=== PATIENT | female | born 1975 | race Caucasian/White ===

== ENCOUNTER 2023-12-27 16:36 | Emergency (ER) | payer BC ==
[~2023-12-27] VITALS: Ht 162.6 cm; Wt 77.1 kg
[2023-12-27 16:41] VITALS: BP_SYST 150; PULSE 66; RESP 18; TEMP 98.3; O2SAT 98
[2023-12-27 18:50] VITALS: BP_SYST 150; PULSE 66; RESP 18; TEMP 98.3; O2SAT 98
== END 2023-12-27 18:49 | disposition home or self-care (01) ==
LOC: SED 16:36
DX: S93.401A Sprain of unspecified ligament of right ankle, initial encounter (principal); Z79.899 Other long term (current) drug therapy; W18.42XA Slipping, tripping and stumbling without falling due to stepping into hole or opening, initial encounter; Y93.89 Activity, other specified; Y92.89 Other specified places as the place of occurrence of the external cause; Y99.8 Other external cause status
CPT/HCPCS: 99284